=== PATIENT | female | born 1990 | race Caucasian/White ===

== ENCOUNTER 2017-04-19 16:21 | Emergency (ER) | payer MEDICAID ==
[~2017-04-19] VITALS: Ht 175.3 cm; Wt 77.1 kg
[~2017-04-19 16:21] MED LIST: CLIN300C3 PO; CODE-54 PO; MNTL10T PO; PREN1TAB19 PO; RNT150T PO
[2017-04-19 17:00] VITALS: BP 121/80
[2017-04-19] MEDS ORDERED: MUPI15CR TP (17:06)
--- NOTE | 2017-04-19 17:08 | ED General ---
General Chief Complaint: General Problems/Pain Stated Complaint: NAVEL PAIN/DISCHARGE Nursing Triage Note: PT STATES THAT HER BELLY BUTTON IS HAVING DISCHARGE AND FEELS LIKE ITS ON FIRE. PT STATES THAT HER STUCK A STRAW INTO HER BELLY BUTTON APPROX 2 WEEKS AGO AND BLEW AIR INTO HER BELLY BUTTON AND EVER SINCE THEN SHE HAS BEEN HAVING DISCHARGE AND PAIN. PT STATES DISCHARGE IS CLEAR/WHITE. Nursing Sepsis Screen: No Definite Risk History of Present Illness Time Seen by Provider: 16:50 Initial Comments patient presents from the local pain and discharge. She reports that 1-2 weeks ago her physician a straw into her umbilicus and then blew air into it. Since then she has been having pain and discomfort. She has been cleaning it with salt water. It improved slightly and then has become worse. She denies any other abdominal pain, nausea or vomiting. She had no recent skin infections. She had dental pain approximately one week ago, treated it with over-the- counter oral rinses and it has improved. No history of cellulitis, abscesses or MRSA. Timing/Duration: 1 Week, Getting Worse Severity: Mild Modifying Factors: improves with Rest Associated Systoms: Denies Symptoms Allergies and Home Medications Allergies Coded Allergies: Penicillins (Unverified Allergy, Unknown, 04/14/14) Home Medications Clindamycin Hcl 300 Mg Capsule, 1 EACH PO TID, #30 Prescribed by: FADUMO DEL VALLE on 04/14/14 1450 Codeine Phos/Acetaminophen 1 Tab Tablet, 1-2 TAB PO Q 4-6 HOURS PRN for PAIN, # 10 NEEDED FOR PAIN Prescribed by: FADUMO DEL VALLE on 04/14/14 1450 Montelukast Sodium 10 Mg Tab, 10 MG PO DAILY, (Reported) Mupirocin Calcium 15 Gm Cream..g., 15 GM TP TID for 7 Days, #1 Ref 0 Clean umbilicus with peroxide, then apply cream tid Prescribed by: JAVI MARINELLI on 04/19/17 1706 Vit/Fe Fumarate/Fa 1 Each Tablet, 1 EACH PO DAILY, (Reported) Ranitidine Hcl 150 Mg Tablet, 1 TAB PO DAILY, #30 (Reported) Constitutional: no symptoms reported, see HPI Gastrointestinal: no symptoms reported, see HPI, No abdominal pain, No constipation, No diarrhea, No loss of appetite, No vomiting : No LMP: Apr 17, 2017 Skin: see HPI, rash, other (pain umbilicus with discharge) All Other Systems Reviewed Negative Unless Noted: Yes Past Otswzsx-Oyaotq-Wlghwi Hx Patient Social History Alcohol Use: Denies Use Recreational Drug Use: No Smoking Status: Current Everyday Smoker Type Used: Cigarettes 2nd Hand Smoke Exposure: Yes Recent Foreign Travel: No Contact w/Someone Who Travel: No Recent Infectious Disease Expo: No Recent Hopitalizations: No Seasonal Allergies Seasonal Allergies: Yes Surgeries HX Surgeries: Yes (UPPER AND LOWER GI SCOPE) Surgeries: Section Respiratory Hx Respiratory Disorders: No Cardiovascular Hx Cardiac Disorders: No Neurological Hx Neurological Disorders: No Genitourinary Hx Genitourinary Disorders: No Gastrointestinal Hx Gastrointestinal Disorders: Yes Gastrointestinal Disorders: Ulcer Musculoskeletal Hx Musculoskeletal Disorders: No Endocrine Hx Endocrine Disorders: No HEENT HX ENT Disorders: No Cancer Hx Cancer: No Psychosocial Hx Psychiatric Problems: No Reviewed Nursing Assessment Reviewed/Agree w Nursing PMH: Yes Physical Exam Vital Signs Vital Sign - Last 12Hours 04/19/17 16:28 Temp 97.2 Pulse 92 Resp 20 B/P (MAP) 121/80 Pulse Ox 98 O2 Delivery Room Air Capillary Refill : Less Than 3 Seconds General Appearance: No Apparent Distress, WD/WN HEENT: PERRL/EOMI, TMs Normal, Normal ENT Inspection Neck: Full Range of Motion, Normal Inspection, Non Tender, No Lymphadenopathy ( L), No Lymphadenopathy (R) Respiratory: Chest Non Tender, Lungs Clear Cardiovascular: Regular Rate, Rhythm, No Edema, No Murmur, Normal Peripheral Pulses Gastrointestinal: Normal Bowel Sounds, No Organomegaly, No Pulsatile Mass, Non Tender, Soft Extremity: Normal Capillary Refill, Normal Inspection, Normal Range of Motion Neurologic/Psychiatric: Alert, Oriented x3, No Motor/Sensory Deficits, Normal Mood/Affect Skin: Normal Color, Warm/Dry, Other (trace mayda-umbilical erythema, strong odor with dry blood present external to umbilicus, no discharge present, clear drainage present at base. Culture obtained. Only tender to touch, no induration , abscess, fluctuance or active drainge.) Progress/Results/Core Measures Results/Orders My Orders Orders - JAVI MARINELLI Wound Culture (04/19/17 17:08) Vital Signs/I&O Vital Sign - Last 12Hours 04/19/17 16:28 Temp 97.2 Pulse 92 Resp 20 B/P (MAP) 121/80 Pulse Ox 98 O2 Delivery Room Air Blood Pressure Mean: 94 Progress Note : Time: 16:50 Progress Note after culture obtained from umbilicus, it was thoroughly irrigated with 50 ml peroxide. Triple antibiotic ointment and a Band-Aid were applied. informed patient we will contact her with culture results in 2-3 days. Told that time she is to use the Bactroban cream to the umbilicus and continue to clean it with peroxide. She verbalized understanding of discharge instructions. Departure Impression Impression: Primary Impression: Cellulitis, umbilical Disposition: HOME, SELF-CARE Condition: Stable Departure-Patient Inst. Decision time for Depature: 17:00 Referrals: NO,LOCAL PHYSICIAN (PCP/Family) Primary Care Physician Patient Instructions: Cellulitis (Skin Infection), Adult (DC) Add. Discharge Instructions: wash hands frequently. Clean umbilicus with soap and water gently when showering. Clean with peroxide and apply antibiotic cream as prescribed. Keep area clean and dry: no bathing in a bathtub, no swimming in pools, lakes or [place], avoid hot tubs. return to emergency department for increased pain, fevers, abdominal pain, or new problems. May use Tylenol 650 mg every 6 hours and ibuprofen 600 mg every 8 hours for pain. All discharge instructions reviewed with patient and/or family. Voiced understanding. Scripts Mupirocin Calcium (Bactroban) 15 Gm Cream..g. 15 GM TP TID for 7 Days, #1 TUBE 0 Refills Clean umbilicus with peroxide, then apply cream tid Prov: JAVI MARINELLI 04/19/17 JAVI MARINELLI Apr 19, 2017 17:08
--- OUTSIDE RECORDS SUMMARY | 2017-04-19 21:30 | XMS REPORT | Continuity of Care Document ---
Author Author [facility] Organization [facility] Address Unknown Phone Unavailable Allergies Medications Problems Procedures Results Encounters ACCT No. Visit Date/Time Discharge Status Pt. Type Provider Facility Loc./Unit Complaint [id number] 04/14/2014 14:09:00 2013 15:01:00 [facility] Emergency [id number] 02/12/2014 13:36:00 2013 16:30:00 [facility] Outpatient
== END 2017-04-19 17:00 | disposition home or self-care (01) ==
LOC: EDUNIT# 16:21 → ER 16:23
DX: L03.316 Cellulitis of umbilicus (principal); K25.9 Gastric ulcer, unspecified as acute or chronic, without hemorrhage or perforation; F17.210 Nicotine dependence, cigarettes, uncomplicated
CPT/HCPCS: 87070; 87205; 99282

== ENCOUNTER 2017-04-30 12:44 | Emergency (ER) | payer MEDICAID ==
[~2017-04-30] VITALS: Ht 175.3 cm; Wt 77.1 kg
[~2017-04-30 12:44] MED LIST changes: +MUPI15CR TP
[2017-04-30] MEDS ORDERED: NS IV 1000 ML 1,000 ML IV SCH (13:00)
[2017-04-30 13:10] LABS: KETONES,URINE 1+ (NEGATIVE); LEUKOCYTE ESTERASE ,URINE 2+ (NEGATIVE); NITRITE,URINE NEGATIVE (NEGATIVE); PH,URINE 6 (5-9); PROTEIN,URINE 1+ (NEGATIVE); UROBILINOGEN,URINE 1 MG/DL (NORMAL)
[2017-04-30 13:21] LABS: SQUAMOUS EPITHELIAL CELL,UR TNTC /HPF; WBC,URINE RARE /HPF
[2017-04-30 13:25] LABS: BASOPHILS % (AUTO) 0 % (0-10); EOSINOPHILS # (AUTO) 0.5 10^3/uL (0.0-0.3); EOSINOPHILS % (AUTO) 5 % (0-10); LYMPHOCYTES # (AUTO) 3.5 X 10^3 (1.0-4.0); LYMPHOCYTES % (AUTO) 38 % (12-44); MEAN CORPUSCULAR HEMOGLOBIN 28 PG (25-34); MEAN CORPUSCULAR HGB CONC 33 G/DL (32-36); MEAN CORPUSCULAR VOLUME 85 FL (80-99); MEAN PLATELET VOLUME 10.1 FL (7.4-10.4); MONOCYTES # (AUTO) 0.6 X 10^3 (0.0-1.0); MONOCYTES % (AUTO) 6 % (0-12); NEUTROPHILS # (AUTO) 4.7 X 10^3 (1.8-7.8); NEUTROPHILS % (AUTO) 51 % (42-75); PLATELET COUNT 285 10^3/uL (130-400); RED BLOOD COUNT 4.82 10^6/uL (4.35-5.85); RED CELL DISTRIBUTION WIDTH 14.6 % (10.0-14.5); WHITE BLOOD COUNT 9.3 10^3/uL (4.3-11.0)
[2017-04-30 13:47] LABS: ALANINE AMINOTRANSFERASE 12 U/L (0-55); ALBUMIN 3.7 GM/DL (3.2-4.5); ANION GAP 6 MMOL/L (5-14); ASPARTATE AMINO TRANSFERASE 12 U/L (5-34); BILIRUBIN,TOTAL 0.5 MG/DL (0.1-1.0); BLOOD UREA NITROGEN 9 MG/DL (7-18); BUN/CREATININE RATIO 13; CALCIUM 8.8 MG/DL (8.5-10.1); CARBON DIOXIDE 25 MMOL/L (21-32); CHLORIDE 109 MMOL/L (98-107); CREATININE SERUM 0.72 MG/DL (0.60-1.30); GFR ESTIMATED > 60; GLUCOSE 77 MG/DL (70-105); POTASSIUM 3.6 MMOL/L (3.6-5.0); SODIUM 140 MMOL/L (135-145); TOTAL PROTEIN 6.1 GM/DL (6.4-8.2)
[2017-04-30 14:02] LABS: BILIRUBIN,URINE 1+ (NEGATIVE)
--- NOTE | 2017-04-30 14:39 | ED GI ---
General Chief Complaint: Abdominal/GI Problems Stated Complaint: VOMITING/SHAKINESS Nursing Triage Note: PT COMPLAINS OF VOMITING AND DIARRHEA FOR APPROX 2 DAYS NOW. PT STATES SHE ISN' T ABLE TO KEEP ANYTHING DOWN EXCEPT PEDIALYTE. Sepsis Screen: No Definite Risk Source of Information: Patient Exam Limitations: No Limitations History of Present Illness Time Seen By Provider: 14:33 Initial Comments The patient reports that she began having vomiting and then diarrhea yesterday. She has not had an upset stomach The day prior as well. She has not had a fever or diaphoresis. She reports many loose stools and has vomited at least 3 times. She has been taking Pedialyte in small amounts. Timing/Duration: 1-2 Days Severity/Quality: Moderate Location: Generalized Abdomen Radiation: No Radiation Allergies and Home Medications Allergies Coded Allergies: Penicillins (Unverified Allergy, Unknown, 04/14/14) Home Medications Clindamycin Hcl 300 Mg Capsule, 1 EACH PO TID, #30 Prescribed by: FADUMO DEL VALLE on 04/14/14 1450 Codeine Phos/Acetaminophen 1 Tab Tablet, 1-2 TAB PO Q 4-6 HOURS PRN for PAIN, # 10 NEEDED FOR PAIN Prescribed by: FADUMO DEL VALLE on 04/14/14 1450 Montelukast Sodium 10 Mg Tab, 10 MG PO DAILY, (Reported) Mupirocin Calcium 15 Gm Cream..g., 15 GM TP TID for 7 Days, #1 Ref 0 Clean umbilicus with peroxide, then apply cream tid Prescribed by: JAVI MARINELLI on 04/19/17 1706 Vit/Fe Fumarate/Fa 1 Each Tablet, 1 EACH PO DAILY, (Reported) Ranitidine Hcl 150 Mg Tablet, 1 TAB PO DAILY, #30 (Reported) Review of Systems Constitutional: see HPI EENTM: No Symptoms Reported Respiratory: No Symptoms Reported Cardiovascular: No Symptoms Reported Gastrointestinal: Abdominal Pain, Diarrhea, Nausea, Vomiting Genitourinary: No Symptoms Reported Musculoskeletal: no symptoms reported Skin: no symptoms reported Psychiatric/Neurological: No Symptoms Reported Endocrine: No Symptoms Reported Past Wrcbrtm-Oyavev-Intbrr Hx Patient Social History Alcohol Use: Denies Use Recreational Drug Use: No Smoking Status: Current Everyday Smoker Type Used: Cigarettes 2nd Hand Smoke Exposure: Yes Recent Foreign Travel: No Contact w/Someone Who Travel: No Recent Infectious Disease Expo: No Recent Hopitalizations: No Seasonal Allergies Seasonal Allergies: Yes Surgeries HX Surgeries: Yes (UPPER AND LOWER GI SCOPE) Surgeries: Section Respiratory Hx Respiratory Disorders: No Cardiovascular Hx Cardiac Disorders: No Neurological Hx Neurological Disorders: No Genitourinary Hx Genitourinary Disorders: No Gastrointestinal Hx Gastrointestinal Disorders: Yes Gastrointestinal Disorders: Ulcer Musculoskeletal Hx Musculoskeletal Disorders: No Endocrine Hx Endocrine Disorders: No HEENT HX ENT Disorders: No Cancer Hx Cancer: No Psychosocial Hx Psychiatric Problems: No Physical Exam Vital Signs VS - Last 72 Hours, by Label 04/30/17 12:54 Temp 97.2 Pulse 95 Resp 20 B/P (MAP) 127/82 Pulse Ox 99 O2 Delivery Room Air Capillary Refill : Less Than 3 Seconds General Appearance: mild distress HEENT: normal ENT inspection Neck: non-tender, full range of motion, supple, normal inspection Respiratory: chest non-tender, lungs clear, normal breath sounds, no respiratory distress, no accessory muscle use Cardiovascular: normal peripheral pulses, regular rate, rhythm, no edema, no gallop, no JVD, no murmur Gastrointestinal: abnormal bowel sounds (decreased), tenderness (mild generalized) Extremities: normal range of motion, non-tender, normal inspection, no pedal edema, no calf tenderness, normal capillary refill, pelvis stable Back: normal inspection Neurologic/Psychiatric: pediatric occupational therapist II-XII nml as tested, no motor/sensory deficits, alert, normal mood/affect, oriented x 3 Skin: normal color, warm/dry Lymphatic: no adenopathy Progress/Results/Core Measures Results/Orders Lab Results Laboratory Tests Test 04/30/17 13:01 04/30/17 13:15 Range/Units Urine Color YELLOW Urine Clarity SLIGHTLY CLOUDY Urine pH 6 5-9 Urine Specific [place] 1.025 H 1.016-1.022 Urine Protein 1+ H NEGATIVE Urine Glucose (UA) NEGATIVE NEGATIVE Urine Ketones 1+ H NEGATIVE Urine Nitrite NEGATIVE NEGATIVE Urine Bilirubin 1+ H NEGATIVE Urine Urobilinogen 1 NORMAL MG/DL Urine Leukocyte Esterase 2+ H NEGATIVE Urine RBC (Auto) NEGATIVE NEGATIVE Urine RBC 0-2 /HPF Urine WBC RARE /HPF Urine Squamous Epithelial Cells TNTC H /HPF Urine Crystals NONE /LPF Urine Bacteria FEW H /HPF Urine Casts NONE /LPF Urine Mucus NEGATIVE /LPF Urine Culture Indicated NO White Blood Count 9.3 4.3-11.0 10^3/uL Red Blood Count 4.82 4.35-5.85 10^6/uL Hemoglobin 13.4 11.5-16.0 G/DL Hematocrit 41 35-52 % Mean Corpuscular Volume 85 80-99 FL Mean Corpuscular Hemoglobin 28 25-34 PG Mean Corpuscular Hemoglobin Concent 33 32-36 G/DL Red Cell Distribution Width 14.6 H 10.0-14.5 % Platelet Count 285 130-400 10^3/uL Mean Platelet Volume 10.1 7.4-10.4 FL Neutrophils (%) (Auto) 51 42-75 % Lymphocytes (%) (Auto) 38 12-44 % Monocytes (%) (Auto) 6 0-12 % Eosinophils (%) (Auto) 5 0-10 % Basophils (%) (Auto) 0 0-10 % Neutrophils # (Auto) 4.7 1.8-7.8 X 10^3 Lymphocytes # (Auto) 3.5 1.0-4.0 X 10^3 Monocytes # (Auto) 0.6 0.0-1.0 X 10^3 Eosinophils # (Auto) 0.5 H 0.0-0.3 10^3/uL Basophils # (Auto) 0.0 0.0-0.1 10^3/uL Sodium Level 140 135-145 MMOL/L Potassium Level 3.6 3.6-5.0 MMOL/L Chloride Level 109 H 98-107 MMOL/L Carbon Dioxide Level 25 21-32 MMOL/L Anion Gap 6 5-14 MMOL/L Blood Urea Nitrogen 9 7-18 MG/DL Creatinine 0.72 0.60-1.30 MG/DL Estimat Glomerular Filtration Rate > 60 BUN/Creatinine Ratio 13 Glucose Level 77 70-105 MG/DL Calcium Level 8.8 8.5-10.1 MG/DL Total Bilirubin 0.5 0.1-1.0 MG/DL Aspartate Amino Transf (AST/SGOT) 12 5-34 U/L Alanine Aminotransferase (ALT/SGPT) 12 0-55 U/L Alkaline Phosphatase 57 40-136 U/L Total Protein 6.1 L 6.4-8.2 GM/DL Albumin 3.7 3.2-4.5 GM/DL My Orders Orders - SUSANA LOPEZ MD Cbc With Automated Diff (04/30/17 12:49) Comprehensive Metabolic Panel (04/30/17 12:49) Ua Culture If Indicated (04/30/17 12:49) Ns Iv 1000 Ml (Sodium Chloride 0.9%) (04/30/17 13:00) Urine Bedside (04/30/17 12:52) Vital Signs/I&O Vital Sign - Last 12Hours 04/30/17 12:54 Temp 97.2 Pulse 95 Resp 20 B/P (MAP) 127/82 Pulse Ox 99 O2 Delivery Room Air Blood Pressure Mean: 97 Point of Care Testing Urine -Bedside: Negative Departure Impression Impression: Primary Impression: gastroenteritis Additional Impression: Dehydration Disposition: HOME, SELF-CARE Condition: Stable/Unchanged Departure-Patient Inst. Decision time for Depature: 14:37 Referrals: NO,LOCAL PHYSICIAN (PCP) Primary Care Physician Add. Discharge Instructions: All discharge instructions reviewed with patient and/or family. Voiced understanding. Take flat 7-Up or Gatorade flavor of your choice in small amounts frequently. If you are keeping up you should have to urinate every 4-6 hours at a minimum. Take no food until you have gone at least 24 hours without vomiting or diarrhea. At that point you may take a BRAT diet and progress with small frequent feedings. As tolerated you may then began to advanced to such things as dry toast, mashed potatoes, rice and then to broiled meat such as chicken breakfast. Milk and milk products. Heart is thing to digest and should be reintroduced last Scripts Ondansetron (Zofran Odt) 8 Mg Tab.rapdis 8 MG PO 4 times daily Y for nausea and vomiting, #14 TAB Prov: SUSANA LOPEZ MD 04/30/17 SUSANA LOPEZ MD Apr 30, 2017 14:39
[2017-04-30] MEDS ORDERED: ONDA8TAB9 PO (14:41)
[2017-04-30 14:47] VITALS: BP 127/82
== END 2017-04-30 14:47 | disposition home or self-care (01) ==
LOC: EDUNIT# 12:44 → ER 12:45
DX: K52.9 Noninfective gastroenteritis and colitis, unspecified (principal); E86.0 Dehydration; F17.210 Nicotine dependence, cigarettes, uncomplicated; Z87.19 Personal history of other diseases of the digestive system; Z87.59 Personal history of other complications of pregnancy, childbirth and the puerperium
CPT/HCPCS: 36415; 80053; 81000; 84703; 85025; 96360

== ENCOUNTER 2017-06-08 21:43 | Emergency (ER) | payer MEDICAID ==
[~2017-06-08] VITALS: Ht 177.8 cm; Wt 81.6 kg
[~2017-06-08 21:43] MED LIST changes: +ONDA8TAB9 PO
--- NOTE | 2017-06-08 22:57 | ED Upper Extremity ---
General Chief Complaint: Upper Extremity Stated Complaint: LT WRIST/THUMB INJ Nursing Triage Note: PT REPORTS HIT LT WRIST ON COUNTER AT HOME WHILE PLAYING BALL W/ SON Nursing Sepsis Screen: No Definite Risk Source: patient Exam Limitations: no limitations History of Present Illness Time seen by provider: 22:55 Initial Comments Left wrist pain. Patient was playing with her son when she raised her hand abruptly striking the radial side of the wrist on the edge of the table. She has pain to this location and limited flexion and extension of the wrist due to the pain. This occurred about 6 p.m. tonight. Onset: just prior to arrival Severity: moderate Pain/Injury Location: left wrist Method of Injury: direct blow Modifying Factors: Worse With Movement Allergies and Home Medications Allergies Coded Allergies: Penicillins (Unverified Allergy, Unknown, 04/14/14) Home Medications Clindamycin Hcl 300 Mg Capsule, 1 EACH PO TID, #30 Prescribed by: FADUMO DEL VALLE on 04/14/14 1450 Codeine Phos/Acetaminophen 1 Tab Tablet, 1-2 TAB PO Q 4-6 HOURS PRN for PAIN, # 10 NEEDED FOR PAIN Prescribed by: FADUMO DEL VALLE on 04/14/14 1450 Montelukast Sodium 10 Mg Tab, 10 MG PO DAILY, (Reported) Mupirocin Calcium 15 Gm Cream..g., 15 GM TP TID for 7 Days, #1 Ref 0 Clean umbilicus with peroxide, then apply cream tid Prescribed by: JAVI MARINELLI on 04/19/17 1706 Ondansetron 8 Mg Tab.rapdis, 8 MG PO 4 times daily PRN for nausea and vomiting, #14 Prescribed by: SUSANA LOPEZ on 04/30/17 1441 Vit/Fe Fumarate/Fa 1 Each Tablet, 1 EACH PO DAILY, (Reported) Ranitidine Hcl 150 Mg Tablet, 1 TAB PO DAILY, #30 (Reported) Constitutional: see HPI EENTM: see HPI Respiratory: no symptoms reported Cardiovascular: no symptoms reported Genitourinary: no symptoms reported Musculoskeletal: see HPI Skin: no symptoms reported Psychiatric/Neurological: No Symptoms Reported Past Rnttxso-Lnaqwd-Foxovo Hx Patient Social History Alcohol Use: Denies Use Recreational Drug Use: No Smoking Status: Current Everyday Smoker Type Used: Cigarettes 2nd Hand Smoke Exposure: Yes Recent Foreign Travel: No Contact w/Someone Who Travel: No Recent Infectious Disease Expo: No Recent Hopitalizations: No Physical Abuse: No Sexual Abuse: No Mistreated: No Fear: No Seasonal Allergies Seasonal Allergies: Yes Surgeries History of Surgeries: Yes (UPPER AND LOWER GI SCOPE) Surgeries: Section Respiratory History of Respiratory Disorde: No Cardiovascular History of Cardiac Disorders: No Neurological History of Neurological Disord: No Genitourinary History of Genitourinary Disor: No Gastrointestinal History of Gastrointestinal Di: Yes Gastrointestinal Disorders: Ulcer Musculoskeletal History of Musculoskeletal Dis: No Endocrine History of Endocrine Disorders: No HEENT History of HEENT Disorders: No Cancer History of Cancer: No Psychosocial History of Psychiatric Problem: No Suicide Risk Score: 0 Integumentary History of Skin or Integumenta: No Blood Transfusions History of Blood Disorders: No Physical Exam Vital Signs Vital Sign - Last 12Hours 06/08/17 21:53 Temp 97.8 Pulse 95 Resp 20 B/P (MAP) 123/93 Pulse Ox 97 O2 Delivery Room Air Capillary Refill : Less Than 3 Seconds General Appearance: WD/WN, no apparent distress HEENT: PERRL/EOMI, normal ENT inspection Neck: non-tender, full range of motion Respiratory: no respiratory distress, no accessory muscle use Gastrointestinal: normal bowel sounds, non tender, soft Shoulder: normal inspection, non-tender Elbow/Forearm: normal inspection, non-tender Wrist: Yes normal inspection, Yes non-tender Hand: Left, limited ROM (small ecchymosis at the radial side of the wrist. No swelling. No deformity.) Neurologic/Tendon: normal sensation, normal motor functions, normal tendon functions Neurologic/Psychiatric: alert, normal mood/affect, oriented x 3 Skin: normal color, warm/dry Progress/Results/Core Measures Results/Orders My Orders Orders - FADUMO DEL VALLE APRN Wrist, Left, 3 Views Or More (06/08/17 22:04) Vital Signs/I&O Vital Sign - Last 12Hours 06/08/17 21:53 Temp 97.8 Pulse 95 Resp 20 B/P (MAP) 123/93 Pulse Ox 97 O2 Delivery Room Air Blood Pressure Mean: 103 Departure Impression Impression: Primary Impression: Contusion of wrist Disposition: 01 HOME, SELF-CARE Condition: Stable Departure-Patient Inst. Decision time for Depature: 22:57 Referrals: NO,LOCAL PHYSICIAN (PCP/Family) Primary Care Physician Patient Instructions: Contusion (DC) Add. Discharge Instructions: 1. Wear the splint for the next day or 2 until the pain subsides 2. Tylenol and Motrin for pain 3. Return to ER for any concerns All discharge instructions reviewed with patient and/or family. Voiced understanding. FADUMO DEL VALLE APRN Jun 08, 2017 22:57
[2017-06-08 23:07] VITALS: BP 0/0
--- NOTE | 2017-06-09 06:42 | Diagnostic Imaging Report ---
CLINICAL INDICATION: Patient hit wrist on corner of table today. Patient having pain since. EXAM: X-ray of the left wrist, 3 views. COMPARISON: None. FINDINGS: There is no evidence of acute fracture or dislocation. There is no significant bone or joint abnormality. Scapholunate interval is within normal limits. IMPRESSION: Unremarkable x-ray of the left wrist. Dictated by: Dictated on workstation # [id number]
== END 2017-06-08 23:07 | disposition home or self-care (01) ==
LOC: EDUNIT# 21:43 → ER 21:45
DX: S60.212A Contusion of left wrist, initial encounter (principal); F17.210 Nicotine dependence, cigarettes, uncomplicated; Z87.59 Personal history of other complications of pregnancy, childbirth and the puerperium; Z87.19 Personal history of other diseases of the digestive system; W22.03XA Walked into furniture, initial encounter
CPT/HCPCS: 73110; 99282